=== PATIENT | female | born 1960 | race African-American/Black ===

== ENCOUNTER 2019-05-19 11:07 | Emergency (ER) | payer OTHER ==
[~2019-05-19] VITALS: Ht 167.6 cm; Wt 91.0 kg
[2019-05-19] MEDS ORDERED: AMLO10TA80 PO (11:19)
[2019-05-19] MEDS ORDERED: LISI-604 PO (11:19)
[2019-05-19] MEDS ORDERED: SODIUM CHLORIDE 0.9% 1,000 ML IV ONE ×2 (13:18→18:24)
[2019-05-19 14:01] LABS: HEMATOCRIT. 34.3 % (36.0-48.0); HEMOGLOBIN. 11.7 g/dL (12.0-16.0); MEAN CORPUSCULAR HEMOGLOBIN 31.9 pg (28.0-32.0); MEAN CORPUSCULAR VOLUME 93.2 fL (81.0-99.0); MEAN PLATELET VOLUME 7.2 fl (7.4-10.4); PLATELET 259 x1000/uL (130-400); RED BLOOD CELL COUNT 3.67 mill/uL (4.2-5.4); RED CELL DISTRIBUTION WIDTH 14.1 % (11.6-14.6)
[2019-05-19 14:02] LABS: CLARITY URINE CLOUDY (CLEAR); COLOR URINE YELLOW (YELLOW); KETONES URINE NEGATIVE (NEGATIVE); LEUKOCYTE ESTERASE URINE 2+ (NEGATIVE); NITRITE URINE POSITIVE (NEGATIVE); OCCULT BLOOD URINE 3+ (NEGATIVE); PROTEIN URINE 2+ (NEGATIVE); SPECIFIC GRAVITY URINE 1.011 (1.005-1.030)
[2019-05-19 14:07] LABS: CHLORIDE 108 mEq/L (98-107); INR 1.1; PROTHROMBIN TIME 11.4 sec (9.6-11.0)
[2019-05-19 14:17] LABS: PLATELET ESTIMATE NORMAL
[2019-05-19] MEDS ORDERED: CEFTRIAXONE 2 G PREMIX 50 ML IV ONE (14:45)
[2019-05-19] MEDS ORDERED: ONDANSETRON HCL 4MG/2ML INJ IV ONE (15:45)
[2019-05-19] MEDS ORDERED: KETOROLAC 30MG/ML VIAL IV ONE (18:00)
[2019-05-19 19:30] VITALS: BP 104/56
== END 2019-05-19 20:57 ==
LOC: ER 12:27
DX: N12 Tubulo-interstitial nephritis, not specified as acute or chronic (principal); R00.0 Tachycardia, unspecified; I10 Essential (primary) hypertension; Z88.5 Allergy status to narcotic agent; Z79.899 Other long term (current) drug therapy; Z87.440 Personal history of urinary (tract) infections
CPT/HCPCS: 36415; 80053; 81003; 83605; 83690; 85025; 85610; 87077; 87086; 87186; 96365; 96375; 99283; J0696; J1885; J2405; J7030; Z7610